=== PATIENT | male | born 1940 | race Caucasian/White ===

== ENCOUNTER 2019-01-07 13:47 | Emergency (ER) | payer MEDICARE, MEDICAID ==
--- NOTE | 2019-01-07 14:32 | Emergency Department Record ---
History of Present Illness - General Chief Complaint: Cough Stated Complaint: COUGH,WEAKNESS Time Seen by Provider: 01/07/19 14:19 Source: Patient Mode of Arrival: Ambulatory Limitations: No limitations - History of Present Illness Initial Comments: The patient is here due to a 5 day hx of cough and congestion. He denies any SOB, TYE, fever or pain. The patient does feel very weak. 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 MD Complaint: Cough Onset/Timin -: Days(s) - Related Data Home Medications Medication Instructions Recorded Confirmed Last Taken Bicalutamide [Casodex] 50 mg PO DAILY 01/07/19 01/07/19 01/07/19 Leuprolide Acetate [Lupron Depot 11.25 mg IM ASDIR 01/07/19 01/07/19 Unknown ([place])] Lisinopril 40 mg PO DAILY 01/07/19 01/07/19 01/07/19 Lorazepam [Ativan] 1 mg PO ASDIR PRN 01/07/19 01/07/19 Unknown Allergies Allergy/AdvReac Type Severity Reaction Status Date / Time povidone-iodine Allergy BLISTERS Verified 01/07/19 14:21 [From Betadine] soap [From Betadine] Allergy BLISTERS Verified 01/07/19 14:21 Sulfa (Sulfonamide Allergy RASH Verified 01/07/19 14:21 Antibiotics) Travel Screening - Travel/Exposure Within Last 30 Days Have you traveled within the last 30 days?: No - Travel/Exposure Within Last Year Have you traveled outside the [place] in the last year?: No - Additonal Travel Details Have you been exposed to anyone with a communicable illness?: No - Travel Symptoms Symptom Screening: None Review of Systems Constitutional: Denies: Chills, Fever Eyes: Denies: Eye discharge ENT: Reports: Congestion Respiratory: Reports: Cough. 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 Lung lesions- multiple at least 6) Family Medical History Any Significant Family History?: No Physical Exam - General General Appearance: Alert, Oriented x3, Cooperative, No acute distress - Head Head exam: Atraumatic, Normocephalic, Normal inspection - Eye Eye exam: Normal appearance, PERRL - ENT Throat exam: Normal inspection. negative: Tonsillar erythema, Tonsillar exudate - Neck Neck exam: Normal inspection, Full ROM. negative: Tenderness - Respiratory Respiratory exam: Normal lung sounds bilaterally. negative: Accessory muscle use, Decreased breath sounds, Rales, Respiratory distress - Cardiovascular Cardiovascular Exam: Regular rate, Normal rhythm, Normal heart sounds. negative: Diastolic murmur, Systolic murmur - GI/Abdominal GI/Abdominal exam: Soft, Normal bowel sounds. negative: Tenderness - Extremities Extremities exam: Normal inspection, Full ROM, Normal capillary refill. negative: Tenderness - Neurological Neurological exam: Alert, Normal gait, Oriented X3. negative: Abnormal gait, Altered, Motor sensory deficit Course Vital Signs 01/07/19 14:22 Temperature 97.8 F Pulse Rate [ 77 Pulse Ox Probe] Respiratory 16 Rate Blood Pressure 172/85 [Left Arm] Pulse Ox 95 - Reevaluation(s) Reevaluation #1: The patient is resting comfortably. I did discuss the lab results with the brenda ent and the need for hospital admission due to the low sodium. The patient did have a sodium drawn in September of this year and it was 140. Because of that I did recommend hospital admission but the patient is refusing. I did explain to him that I believe the cough is due to a viral URI but with the sodium that low I do recommend admission for monitoring and for recheck. The patient understands the risks of leaving are that he could go home and have a seizure, become confused, have a stroke, become disabled and even . The patient fully understands and accepts the risks and will leave AMA. He is instructed to see his doctor IAIN or return to the ER if he changes his mind about being evaluated. 01/07/19 16:16 Medical Decision Making - Data Complexity MDM Data: Labs Ordered and/or Reviewed, X-Ray Ordered and/or Reviewed - Lab Data Result diagrams: 01/07/19 14:44 01/07/19 14:44 - Radiology Data Radiology results: Report reviewed (CXR: Neg for any acute process.) Disposition Disposition: Discharge Clinical Impression: Hyponatremia Disposition: Against Medical Advice Condition: (2) Stable Instructions: Hyponatremia (ED), Cold Symptoms (ED) Additional Instructions: Please see your doctor tomorrow for recheck and continue your regular medicines. Please return to the ER for any worsening symptoms or if you change your mind about being evaluated further. Forms: Patient Portal Access Time of Disposition: 16:20 Quality - Quality Measures Quality Measures: N/A - Blood Pressure Screening View Details: Yes Does Patient Have Any of the Following: No Blood Pressure Classification: Pre-Hypertensive BP Reading Systolic Measurement: 138 Diastolic Measurement: 79 Screening for High Blood Pressure: < Pre-Hypertensive BP, F/U Documented > [G8950] Pre-Hypertensive Follow-up Interventions: Referral to alternative/primary care provider.
[2019-01-07 14:50] LABS: ABSOLUTE NEUTROPHIL COUNT 4.54; BASO % 0.5 % (0-6); EOS % 1.7 % (0-6); GRAN % 76.7 % (47-80); HEMATOCRIT 37.5 % (42.0-52.0); HEMOGLOBIN 13.1 gm/dl (14.0-18.0); LYMPH % 8.4 % (16-45); MEAN CELL VOLUME 86.8 fl (81-97); MEAN CORPUSCULAR HEMOGLOBIN 30.3 pg (27-33); MEAN CORPUSCULAR HGB CONC 34.9 g/dl (32-36); MEAN PLATELET VOLUME 9.1 fl (7.4-10.4); MONO % 12.7 % (0-9); PLATELET COUNT 201 K/uL (130-400); RED BLOOD COUNT 4.32 M/uL (4.40-5.70); RED CELL DISTRIBUTION WIDTH 12.9 % (11.5-14.5); WHITE BLOOD COUNT W/O DIFF 5.9 K/uL (4.2-12.2)
[2019-01-07 15:05] LABS: BLOOD UREA NITROGEN 10 mg/dL (8-23); CREATININE 0.7 mg/dL (0.7-1.2); EST GLOMERULAR FILTRATION RATE > 60 mL/min
[2019-01-07 15:06] LABS: TOTAL PROTEIN 6.4 g/dL (6.6-8.7)
[2019-01-07 15:08] LABS: GLUCOSE,RANDOM 94 mg/dL (74-109)
[2019-01-07 15:10] LABS: ALT/SGPT 18 U/L (<41)
[2019-01-07 15:11] LABS: ALB/GLOB RATIO 1.8 (1.1-1.8); ALBUMIN 4.1 g/dL (4.0-5.0); ALKALINE PHOSPHATASE 52 U/L (40-129); AST/SGOT 22 U/L (10.0-50.0)
[2019-01-07 15:25] LABS: C-REACTIVE PROTEIN 1.66 mg/dL (<0.5)
--- NOTE | 2019-01-08 15:14 | RADIOLOGY REPORT ---
EXAM: CHEST, TWO VIEWS HISTORY: CHEST PAIN AND COUGH FOR THE PAST WEEK. TECHNIQUE: PA and lateral upright views of the chest were obtained. Comparison: None. FINDINGS: The heart is normal in size. There is calcification and mild tortuosity of the aorta. The mediastinum and pulmonary vasculature are normal. There is minor atelectasis or scarring at both lung bases. There are no visible acute infiltrates or effusions. There is no pneumothorax. The bones are osteopenic, but appear intact. Degenerative changes are present within the thoracic spine and shoulders. IMPRESSION: 1. NO ACUTE INTRATHORACIC PATHOLOGY. 2. MINOR ATELECTASIS OR SCARRING AT BOTH LUNG BASES. JOB NUMBER: [id number] MTDD
== END 2019-01-07 16:30 | disposition left against medical advice (07) ==
LOC: ER 13:47
DX: E87.1 Hypo-osmolality and hyponatremia (principal); J06.9 Acute upper respiratory infection, unspecified; R51 Headache; R05 Cough; R53.1 Weakness; I10 Essential (primary) hypertension; C61 Malignant neoplasm of prostate; C78.00 Secondary malignant neoplasm of unspecified lung; Z87.891 Personal history of nicotine dependence
CPT/HCPCS: 71046; 80053; 84145; 85025; 86140; 99285

== ENCOUNTER 2019-02-21 09:39 | Emergency (ER) | payer MEDICARE, MEDICAID ==
[2019-02-21] MEDS ORDERED: MAGNESIUM HYDROXIDE/AL HYDROX 30 ML, LIDOCAINE VISC 2% 15ML 15 ML PO ONE ×2 (10:27)
[2019-02-21 10:40] LABS: ABSOLUTE NEUTROPHIL COUNT 10.09; HEMATOCRIT 44.4 % (42.0-52.0); HEMOGLOBIN 14.5 gm/dl (14.0-18.0); MEAN CELL VOLUME 92.3 fl (81-97); MEAN CORPUSCULAR HEMOGLOBIN 30.1 pg (27-33); MEAN CORPUSCULAR HGB CONC 32.7 g/dl (32-36); MEAN PLATELET VOLUME 10.2 fl (7.4-10.4); PLATELET COUNT 292 K/uL (130-400); RED BLOOD COUNT 4.81 M/uL (4.40-5.70); RED CELL DISTRIBUTION WIDTH 14.9 % (11.5-14.5)
[2019-02-21 10:50] LABS: PLATELET ESTIMATE NORMAL (NORMAL)
[2019-02-21 10:55] LABS: BLOOD UREA NITROGEN 19 mg/dL (8-23); CREATININE 0.9 mg/dL (0.7-1.2); EST GLOMERULAR FILTRATION RATE > 60 mL/min
[2019-02-21 10:56] LABS: LIPASE 31 U/L (13-60)
[2019-02-21 10:58] LABS: GLUCOSE,RANDOM 217 mg/dL (74-109)
--- NOTE | 2019-02-21 11:10 | CT SCAN REPORT ---
EXAMINATION: CT Head without IV Contrast EXAM DATE: 02/21/2019 11:00 AM TECHNIQUE: Standard protocol CT images of the head were obtained without intravenous contrast. Pike l and sagittal reconstructed images were created. INDICATION: injury COMPARISON: No relevant comparison studies HAND DOMINANCE: Unknown. ENCOUNTER: Not applicable FINDINGS: 1. No intracranial mass effect, shift of midline structures, intra-axial or extra-axial hemorrhage, o r other extra-axial fluid collections. 2. Brain volume and ventricular size are appropriate for patient's stated age. No ventricular outflow obstruction. 3. Solis-white matter differentiation is preserved. No sulcal effacement. No suspicious areas of alter ed attenuation. Moderate burden of supratentorial white matter hypodensity. 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 4. Midline structures and craniocervical junction are unremarkable. Marked soft tissue thickening at the craniocervical junction, may represent pannus formation, with significant dorsal displacement of the cervical medullary junction and moderate narrowing of the foramen magnum and C1-C2 level. 5. Intracranial calcified atherosclerotic disease in the carotid siphons. 6. No depressed or widely calvarial fractures. No aggressive calvarial lesions. 7. Visualized paranasal sinuses and temporal bone structures are well aerated. Unremarkable appearanc e of the orbital compartments. IMPRESSION: No acute intracranial abnormality to the limits of noncontrast CT technique. Soft tissue thickening at the craniocervical junction, may represent large pannus formation with mass effect on the cervical medullary junction. Comparison with prior studies if available would be helpf ul. Alternatively, consider further evaluation with MRI of the cervical spine. Dictated by: Doris Magana MD on 02/21/2019 11:03 AM. .
--- NOTE | 2019-02-21 11:22 | CT SCAN REPORT ---
EXAMINATION: CT Abdomen and Pelvis without IV Contrast EXAM DATE: 02/21/2019 11:00 AM TECHNIQUE: Standard protocol CT imaging of the abdomen and pelvis was performed without intravenous c ontrast. INDICATION: ap COMPARISON: None ENCOUNTER: Not applicable CT ABDOMEN AND PELVIS FINDINGS: Lung Bases: Bibasilar discoid atelectasis or scarring. 17 mm cavitary lesion left lower lobe. 11 mm n odular density right middle lobe. Follow-up CT of the thorax. Coronary artery calcifications Hepatobiliary: The liver has a normal size with a smooth surface. Normal gallbladder Pancreas: The pancreas is normal. Spleen: The spleen is not enlarged. Adrenals: The adrenal glands are normal. Gastrointestinal: Distended fluid-filled stomach and small bowel transition zone right lower quadrant consistent with a distal small bowel obstruction appendix not visualized. Fecal impaction Reproductive Organs: Unremarkable Lymphatic System: There is no adenopathy within the abdomen or pelvis. Vasculature: Normal caliber abdominal aorta Peritoneum: No free fluid, free air, or inflammation Assessment of the solid organs, soft tissues, and vascular structures is overall limited on noncontra st imaging, IMPRESSION: 1. Distended fluid-filled stomach and small bowel transition zone right lower quadrant consistent wit h a small bowel obstruction 2. 17 mm cavitary lesion left lower lobe, 11 mm nodular density right middle lobe. Bibasilar scarring . Follow-up CT of the thorax as clinically directed 3. Coronary artery disease 4. Fecal impaction 5. Right hip arthroplasty degrades the pelvis NOTE: There is a follow-up recommendation in this report. Dictated by: Siva Guerrero MD on 02/21/2019 11:09 AM. .
[2019-02-21] MEDS ORDERED: HYDROMORPHONE HCL 2 MG/ML VIAL IVP ONE (11:41)
--- NOTE | 2019-02-21 11:49 | Emergency Department Record ---
History of Present Illness - General Chief Complaint: Abdominal Pain Stated Complaint: ABD PAIN Time Seen by Provider: 02/21/19 09:58 Source: Patient Mode of Arrival: Wheelchair Limitations: No limitations - History of Present Illness Initial Comments: pt has ap w n/v and heart burn since yesterday. he has a hx of bowel obstruction MD Complaint: Abdominal pain Onset/Timin -: Hour(s) Location: Epigastric Severity scale (1-10): 2 Quality: Burning, Other Consistency: Constant Improves With: Nothing Worsens With: Nothing Associated Symptoms: Nausea, Vomiting - Related Data Home Medications Medication Instructions Recorded Confirmed Last Taken Lisinopril 40 mg PO DAILY 02/21/19 02/21/19 02/21/19 Previous Rx's Medication Instructions Recorded Amlodipine Besylate [Norvasc] 10 mg PO DAILY #90 tab 01/11/19 Amlodipine Besylate [Norvasc] 10 mg PO DAILY #90 tab 01/11/19 Allergies Allergy/AdvReac Type Severity Reaction Status Date / Time povidone-iodine Allergy BLISTERS Verified 02/21/19 09:53 [From Betadine] soap [From Betadine] Allergy BLISTERS Verified 02/21/19 09:53 Sulfa (Sulfonamide Allergy RASH Verified 02/21/19 09:53 Antibiotics) Travel Screening - Travel/Exposure Within Last 30 Days Have you traveled within the last 30 days?: No - Travel/Exposure Within Last Year Have you traveled outside the [place] in the last year?: No - Additonal Travel Details Have you been exposed to anyone with a communicable illness?: No - Travel Symptoms Symptom Screening: None Review of Systems Reviewed: No additional complaints except as noted below Constitutional: Reports: As per HPI. Denies: Chills, Fever, Malaise, Night sweats, Weakness, Weight change Eyes: Reports: As per HPI. Denies: Eye discharge, Eye pain, Photophobia, Vision change ENT: Reports: As per HPI. Denies: Congestion, Dental pain, Ear pain, Epistaxis, Hearing loss, Throat pain Respiratory: Reports: As per HPI. Denies: Cough, Dyspnea, Hemoptysis, Stridor, Wheezes Cardiovascular: Reports: As per HPI. Denies: Arrhythmia, Chest pain, Dyspnea on exertion, Edema, Murmurs, Orthopnea, Palpitations, Paroxysmal nocturnal dyspnea, Rheumatic Fever, Syncope Endocrine: Reports: As per HPI. Denies: Fatigue, Heat or cold intolerance, Polydipsia, Polyuria Gastrointestinal: Reports: As per HPI. Denies: Abdominal pain, Constipation, Diarrhea, Hematemesis, Hematochezia, Melena, Nausea, Vomiting Genitourinary: Reports: As per HPI. Denies: Dysuria, Frequency, Hematuria, Incontinence, Retention, Testicular pain, Testicular mass, Urgency Musculoskeletal: Reports: As per HPI. Denies: Arthralgia, Back pain, Gout, Joint swelling, Myalgia, Neck pain Skin: Reports: As per HPI. Denies: Bruising, Change in color, Change in hair/nails, Lesions, Pruritus, Rash Neurological: Reports: As per HPI. Denies: Abnormal gait, Confusion, Headache, Numbness, Paresthesias, Seizure, Tingling, Tremors, Vertigo, Weakness Psychiatric: Reports: As per HPI. Denies: Anxiety, Auditory hallucinations, Depression, Homicidal thoughts, Suicidal thoughts, Visual hallucinations Hematological/Lymphatic: Reports: As per HPI. 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 Lung lesions- multiple at least 6) Family Medical History Any Significant Family History?: Yes Hx Cancer: Father, Brother/Sister Hx Kidney Disease: Brother/Sister Physical Exam - General General Appearance: Alert, Oriented x3, Cooperative, Mild distress - Head Head exam: Normal inspection - Eye Eye exam: Normal appearance, PERRL, EOMI Pupils: Normal accommodation - ENT ENT exam: Normal exam, Mucous membranes moist, Normal external ear exam, Normal orophraynx Ear exam: Normal external inspection. negative: External canal tenderness Nasal Exam: Normal inspection. negative: Discharge, Sinus tenderness Mouth exam: Normal external inspection, Tongue normal Teeth exam: Normal inspection. negative: Dental caries Throat exam: Normal inspection. negative: Tonsillar erythema, Tonsillar exudate - Neck Neck exam: Normal inspection, Full ROM. negative: Tenderness - Respiratory Respiratory exam: Normal lung sounds bilaterally. negative: Respiratory distress - Cardiovascular Cardiovascular Exam: Regular rate, Normal rhythm, Normal heart sounds - GI/Abdominal GI/Abdominal exam: Soft, Normal bowel sounds, Distended, Tenderness - Rectal Rectal exam: Deferred - exam: Deferred - Extremities Extremities exam: Normal inspection, Full ROM, Normal capillary refill. negative: Tenderness - Back Back exam: Reports: Normal inspection, Full ROM. Denies: Muscle spasm, Rash noted, Tenderness - Neurological Neurological exam: Alert, CN II-XII intact, Normal gait, Oriented X3 - Psychiatric Psychiatric exam: Normal affect, Normal mood - Skin Skin exam: Dry, Intact, Normal color, Warm Course Vital Signs 02/21/19 02/21/19 09:57 11:35 Temperature 99.4 F 99.7 F H Pulse Rate 74 Respiratory 18 Rate Blood Pressure 147/78 Pulse Ox 95 Medical Decision Making - Lab Data Result diagrams: 02/21/19 10:00 02/21/19 10:00 Lab Results 02/21/19 02/21/19 02/21/19 Range/Units 10:00 10:00 10:00 WBC 11.0 (4.2-12.2) K/uL RBC 4.81 (4.40-5.70) M/uL Hgb 14.5 (14.0-18.0) gm/dl Hct 44.4 (42.0-52.0) % MCV 92.3 (81-97) fl MCH 30.1 (27-33) pg MCHC 32.7 (32-36) g/dl RDW 14.9 H (11.5-14.5) % Plt Count 292 (130-400) K/uL MPV 10.2 (7.4-10.4) fl Neutrophils % 93.0 H (47-80) % Eosinophils % Not Reportable Basophils % Not Reportable Absolute Neutrophils 10.09 Lymphocytes 3.0 L (16-45) % Monocytes 4.0 (0-9) % Platelet Estimate Normal (NORMAL) RBC Morphology Normal Sodium 141 (136-145) mmol/L Potassium 4.0 (3.4-4.5) mmol/L Chloride 100 (98-107) mmol/L Carbon Dioxide 26.0 (22-29) mmol/L Anion Gap 15.0 (7-16) BUN 19 (8-23) mg/dL Creatinine 0.9 (0.7-1.2) mg/dL Estimated GFR > 60 mL/min Random Glucose 217 H (74-109) mg/dL Lactic Acid 1.4 (0.5-2.2) mmol/L Calcium 10.0 (8.8-10.2) mg/dL Lipase 31 (13-60) U/L Disposition Disposition: Transfer Clinical Impression: Small bowel obstruction due to adhesions Disposition: Acute Care Hospital Transfer [facility] Reason For Transfer: needs surgeon Accepting Physician: dr doll Time Discussed w/Accepting Physician: 12:06 Quality - Quality Measures Quality Measures: N/A - Blood Pressure Screening Does Patient Have Any of the Following: No Blood Pressure Classification: Hypertensive Reading Systolic Measurement: 147 Diastolic Measurement: 78 Screening for High Blood Pressure: < First Hypertensive BP, F/U Documented > [G8950] First Hypertensive Follow-up Interventions: Follow-up with rescreen GT 1 day and LT 4 weeks.
== END 2019-02-21 14:55 | disposition short-term general hospital (02) ==
LOC: ER 09:39
DX: K56.50 Intestinal adhesions [bands], unspecified as to partial versus complete obstruction (principal); R11.2 Nausea with vomiting, unspecified; R12 Heartburn; I10 Essential (primary) hypertension; Z87.891 Personal history of nicotine dependence
CPT/HCPCS: 70450; 74176; 80048; 83605; 83690; 85027; 93005; 93010; 96374; 99285